=== PATIENT | female | born 1980 | race Caucasian/White ===

== ENCOUNTER → 2016-05-05 | Outpatient (CLI) | payer OTHER | LOC: FIMAGING 12:43 | PROVIDERS: ATTEND Midwife | DX: O48.0 Post-term pregnancy (principal); O09.523 Supervision of elderly multigravida, third trimester; Z3A.40 40 weeks gestation of pregnancy; O41.03X0 Oligohydramnios, third trimester, not applicable or unspecified ==

== ENCOUNTER 2016-05-06 01:23 | Inpatient (IN) | payer OTHER ==
[2016-05-06] MEDS ORDERED: TERBUTALINE SULFATE 1 MG/ML VIAL IV PRN (01:33)
[2016-05-06] MEDS ORDERED: LR 1,000 ML IV PRN (01:33)
[2016-05-06 01:48] LABS: % IMMATURE GRANULYOCYTES 0.6 % (0.0-1.1); ABSOLUTE IMMATURE GRANULOCYTES 0.04 10^3/uL (0.00-0.10); ADD DIFF? NO; ADD MORPH? NO; ADD SCAN? NO; ATYPICAL LYMPHOCYTE FLAG 0 (0-99); FRAGMENT RBC FLAG 0 (0-99); HEMATOCRIT 33.7 % (38.0-47.0); LEFT SHIFT FLG 0 (0-99); LIPEMIA HEMOLYSIS FLAG 80 (0-99); MEAN CELL HEMOGLOBIN 26.8 pg (27.9-34.1); MEAN CELL HEMOGLOBIN CONCENTR. 32.6 g/dL (32.4-36.7); MEAN PLATELET VOLUME 11.6 fL (8.7-11.7); PLATELET CLUMPS FLAG 0 (0-99); PLATELET COUNT 119 10^3/uL (150-400); RED BLOOD CELL COUNT 4.11 10^6/uL (4.18-5.33); RED CELL DISTRIBUTION WIDTH 15.9 % (11.5-15.2)
[2016-05-06] MEDS ORDERED: AMMONIA AROMATIC 1 EACH AMP IH ONE (02:04)
[2016-05-06] MEDS ORDERED: TERBUTALINE SULFATE 1 MG/ML VIAL ONE (02:04)
[2016-05-06] MEDS ORDERED: OXYTOCIN 10 UNIT/ML VIAL ONE (02:04)
[2016-05-06] MEDS ORDERED: LIDOCAINE 1% 30 ML SDV ONE (02:04)
[2016-05-06] MEDS ORDERED: MISOPROSTOL 200 MCG TAB ONE (02:04)
[2016-05-06] MEDS: OXYTOCIN/RINGERS LACTATE 1,000 ML IV PRN ×2 (02:32→04:55)
--- NOTE | 2016-05-06 02:44 | PDGENHP ---
History and Physical - Chief Complaint labor - History of Present Illness Pt is a 35 yo at 40w1d with 2 prior , with onset of contractions after midnight tonight, presenting to L&D for labor and found to be 7 cm dilated. complicated by: Oligohydramnios (diagnosed yesterday) AMA, neg NIPT Anemia Hypothyroid H/o uterine inversion with first delivery H/o GDM in 2nd History Information - Allergies/Home Medication List Allergies/Adverse Reactions: No Known Allergies Allergy (Unverified 05/06/16 01:33) I have personally reviewed and updated: family history, medical history, social history, surgical history - Past Medical History no pertinent PMH - Surgical History Reports: no pertinent surgical hx - Social History Smoking Status: Never smoked Alcohol Use: None Drug Use: None Additional social history: , [place]. 2 boy children at home, ages 2&4 Review of Systems ROS: 10pt was reviewed & negative except for what was stated in HPI & below Physical Exam Physical Exam: FHR baseline 125-130, mod miracle, + accels, no decels [place]: q1.5-2 min SVE: 7/100/-1/vtx/intact 114/66 93 36 Constitutional: no apparent distress Ears, Nose, Mouth, Throat: moist mucous membranes Cardiovascular: regular rate and rhythym Respiratory: no respiratory distress Gastrointestinal: soft, non-tender abdomen Skin: warm Musculoskeletal: full muscle strength Neurologic: AAOx3 Psychiatric: interacting appropriately, thought process linear Lab Data & Imaging Review 05/06/16 01:35 WBC 7.17 10^3/uL (3.80-9.50) 05/06/16 01:35 RBC 4.11 10^6/uL (4.18-5.33) L 05/06/16 01:35 Hgb 11.0 g/dL (12.6-16.3) L 05/06/16 01:35 Hct 33.7 % (38.0-47.0) L 05/06/16 01:35 MCV 82.0 fL (81.5-99.8) 05/06/16 01:35 MCH 26.8 pg (27.9-34.1) L 05/06/16 01:35 MCHC 32.6 g/dL (32.4-36.7) 05/06/16 01:35 RDW 15.9 % (11.5-15.2) H 05/06/16 01:35 Plt Count 119 10^3/uL (150-400) L 05/06/16 01:35 MPV 11.6 fL (8.7-11.7) 05/06/16 01:35 Neut % (Auto) 79.7 % (39.3-74.2) H 05/06/16 01:35 Lymph % (Auto) 14.4 % (15.0-45.0) L 05/06/16 01:35 [place] % (Auto) 4.6 % (4.5-13.0) 05/06/16 01:35 Eos % (Auto) 0.4 % (0.6-7.6) L 05/06/16 01:35 Baso % (Auto) 0.3 % (0.3-1.7) 05/06/16 01:35 Nucleat RBC Rel Count 0.0 % (0.0-0.2) 05/06/16 01:35 Absolute Neuts (auto) 5.72 10^3/uL (1.70-6.50) 05/06/16 01:35 Absolute Lymphs (auto) 1.03 10^3/uL (1.00-3.00) 05/06/16 01:35 Absolute Monos (auto) 0.33 10^3/uL (0.30-0.80) 05/06/16 01:35 Absolute Eos (auto) 0.03 10^3/uL (0.03-0.40) 05/06/16 01:35 Absolute Basos (auto) 0.02 10^3/uL (0.02-0.10) 05/06/16 01:35 Absolute Nucleated RBC 0.00 10^3/uL (0-0.01) 05/06/16 01:35 Immature Gran % 0.6 % (0.0-1.1) 05/06/16 01:35 Immature Gran # 0.04 10^3/uL (0.00-0.10) 05/06/16 01:35 Assessment & Plan Assessment: Active labor, term, vertex GBS neg status reassuring Desires unmedicated Plan: Anticipate Routine intrapartum and care Reviewed plan
--- NOTE | 2016-05-06 02:53 | OBPROC ---
- Labor and Delivery Onset of Contractions Date: 05/06/16 Onset of Contractions Time: 00:05 Onset of Contractions Type: Spontaneous Rupture of Membranes Date: 05/06/16 Rupture of Membranes Type: Spontaneous Amniotic Fluid Color: Blood Tinged Delivery Type: Spontaneous Placenta Delivery Date: 05/06/16 Placenta Delivery Time: 02:35 EBL: 250 ml Complications: None - Medications Labor Augmentation/Induction Meds Used: None - Info A Delivery Date: 05/06/16 Delivery Time: 02:22 Sex of Infant: Male Score (1 Min): 8 Score (5 Min): 9
[2016-05-06] MEDS ORDERED: SIMETHICONE 80 MG TAB CHEW PO PRN (03:01)
[2016-05-06] MEDS ORDERED: HYDROCORTISONE 0.5% CREAM TP PRN (03:01)
[2016-05-06] MEDS: IBUPROFEN 600 MG TAB PO PRN ×4 (03:06→21:12)
[2016-05-06] MEDS ORDERED: OXYTOCIN/RINGERS LACTATE 20 UNIT/1,000 ML BAG IV ONE (04:54)
[2016-05-06] MEDS: DOCUSATE SODIUM 100 MG CAP PO PRN ×2 (09:12→21:12)
[2016-05-06] MEDS: IRON POLYSAC/IRON HEME 28 MG TAB PO SCH ×2 (09:12→21:13)
[2016-05-06] MEDS: LEVOTHYROXINE 25 MCG TAB PO SCH (09:13)
[2016-05-06 22:10] VITALS: O2SAT 96
[2016-05-07] MEDS: IBUPROFEN 600 MG TAB PO PRN ×2 (02:57→08:57)
[2016-05-07] MEDS: LEVOTHYROXINE 25 MCG TAB PO SCH (05:40)
--- NOTE | 2016-05-07 08:10 | SOAPPROG ---
SOAP Progress Note Assessment/Plan: Assessment: 35 yo s/p , ppd 1, doing well. Plan: 05/07/16 08:09 Routine care, rh +, home today or tomorrow as desired. Subjective: 35 yo s/p , ppd 1, doing well. Objective: Vital Signs Temp Pulse Resp BP Pulse Ox 36.6 C 90 18 104/60 96 05/06/16 20:00 05/06/16 20:00 05/06/16 20:00 05/06/16 20:00 05/06/16 20:00 Laboratory Results 05/06/16 06:10 05/06/16 05/07/16 05/08/16 05:59 05:59 05:59 Output Total 250 Balance -250 Physical Exam - Physical Exam General Appearance: no apparent distress Respiratory: lungs clear Cardiac/Chest: regular rate, rhythm Abdomen: non-tender Skin: warm/dry Extremities: non-tender Neuro/Psych: oriented x 3 ICD10 Worksheet Patient Problems: Problems Problem Status Onset (normal spontaneous vaginal delivery) Acute
[2016-05-07] MEDS: DOCUSATE SODIUM 100 MG CAP PO PRN (08:57)
[2016-05-07] MEDS: IRON POLYSAC/IRON HEME 28 MG TAB PO SCH (08:57)
[2016-05-07 10:41] VITALS: BP 110/74; PULSE 106; RESP 16; TEMP 97.7
== END 2016-05-07 11:26 | disposition home or self-care (01) | DRG 775 ==
LOC: FLD 01:23 → FOB 04:30
PROVIDERS: ADMIT Obstetrics & Gynecology; ATTEND Obstetrics & Gynecology
PROC: 10E0XZZ Delivery of Products of Conception, External Approach (ICD-10-PCS; principal; 2016-05-06)
DX: O48.0 Post-term pregnancy (principal); O09.523 Supervision of elderly multigravida, third trimester; O41.03X0 Oligohydramnios, third trimester, not applicable or unspecified; O99.284 Endocrine, nutritional and metabolic diseases complicating childbirth; E03.9 Hypothyroidism, unspecified; O99.02 Anemia complicating childbirth; D64.9 Anemia, unspecified; Z3A.40 40 weeks gestation of pregnancy; Z37.0 Single live birth
CPT/HCPCS: J2590; J3105